=== PATIENT | female | born 1980 | race American Indian/Alaskan Native ===

== ENCOUNTER 2021-07-14 13:42 | Observation (INO) | payer MEDICARE ==
[2021-07-14] MEDS ORDERED: ONDANSETRON 4 MG/2 ML INJ IV ONE (13:55)
[2021-07-14] MEDS ORDERED: MORPHINE 4 MG/1 ML INJ IV ONE (13:55)
--- NOTE | 2021-07-14 13:58 | Emergency Department Report ---
HPI - General Chief Complaint: Abdominal Pain Time Seen by Provider: 07/14/21 13:52 - HPI HPI: This is a 40-year-old -French female presents to the emergency department via EMS from home with complaint of a 4-day history of abdominal pain and some recent nausea with vomiting. Patient has a history of hypertension and end-stage renal disease on hemodialysis on Thursday/Thursday/Thursday. She also has a history of hypertension and HIV. She cannot remember the name of her meeting/event planner currently, but gets dialysis at [facility]. The patient does make a small amount of urine, but denies any change in urine output. She denies any fever, vaginal bleeding or discharge, diarrhea, constipation, chest pain or shortness of breath. The abdominal pain is generalized, worse in the middle to upper quadrants, and currently 10 out of 10 in intensity. No known aggravating or alleviating factors. The pain radiates around her flank and back. No recent travel or sick contacts at home. She has not taken anything for symptoms prior to presentation today. ED Past Medical Hx - Past Medical History Previous Medical History?: Yes Hx Hypertension: Yes Hx Renal Disease: Yes Additional medical history: ESRD, HIV+ - Surgical History Past Surgical History?: No - Social History Smoking Status: Current Every Day Smoker Substance Use Type: Marijuana - Medications Home Medications: Home Medications Medication Instructions Recorded Confirmed Last Taken Type Amlodipine Besylate [Norvasc] 10 mg PO DAILY 07/14/21 07/14/21 Unknown History Calcium Acetate 667 mg PO QDAY 07/14/21 07/14/21 Unknown History Dolutegravir Sodium/Lamivudine 1 each PO DAILY 07/14/21 07/14/21 Unknown History [Dovato 50-300 mg Tablet] Isosorbide Dinitrate [Isordil] 20 mg PO BID 07/14/21 07/14/21 Unknown History Nortriptyline [Pamelor] 10 mg PO QHS 07/14/21 07/14/21 Unknown History carvediloL [Coreg] 25 mg PO BID 07/14/21 07/14/21 Unknown History sevelamer HCL [Sevelamer HCl] 800 mg PO QDAY 07/14/21 07/14/21 Unknown History ED Review of Systems ROS: Stated complaint: ABD PAIN Other details as noted in HPI Comment: All other systems reviewed and negative Constitutional: denies: chills, fever Eyes: denies: eye pain, vision change ENT: denies: ear pain, throat pain Respiratory: denies: cough, shortness of breath Cardiovascular: denies: chest pain, palpitations Gastrointestinal: abdominal pain, nausea, vomiting Genitourinary: denies: dysuria, discharge Musculoskeletal: back pain. denies: arthralgia Skin: denies: rash, lesions Neurological: denies: headache, weakness Physical Exam - Physical Exam Physical Exam: GENERAL: The patient is well-developed well-nourished. HENT: Normocephalic. Atraumatic. Patient has moist mucous membranes. EYES: Extraocular motions are intact. NECK: Supple. Trachea is midline. CHEST/LUNGS: Clear to auscultation. There is no respiratory distress noted. HEART/CARDIOVASCULAR: Regular. There is no tachycardia. There is no murmur. ABDOMEN: Abdomen is soft. Generalized abdominal tenderness to palpation. No guarding. Patient has normal bowel sounds. There is no abdominal distention. SKIN: Skin is warm and dry. NEURO: The patient is awake, alert, and oriented. The patient is cooperative. The patient has no focal neurologic deficits. Normal speech. MUSCULOSKELETAL: There is no tenderness or deformity. There is no limitation range of motion. ED Course - Consultations Consultation #1: 07/14/21 15:42 I spoke to the meeting/event planner on-call, Dr. Bhatt, regarding the patient's presentation and hyperkalemia. He agrees with the plan for a hyperkalemia cocktail and he will arrange for the patient to get dialysis. ED Medical Decision Making - Lab Data Result diagrams: 07/14/21 14:11 07/14/21 14:11 Lab Results 07/14/21 07/14/21 07/14/21 Range/Units 14:11 14:11 14:11 WBC 10.1 (4.5-11.0) K/mm3 RBC 3.71 (3.65-5.03) M/mm3 Hgb 10.5 (10.1-14.3) gm/dl Hct 32.8 (30.3-42.9) % MCV 89 (79-97) fl MCH 28 (28-32) pg MCHC 32 (30-34) % RDW 15.2 (13.2-15.2) % Plt Count 141 (140-440) K/mm3 Lymph % (Auto) 15.5 (13.4-35.0) % [place] % (Auto) 5.3 (0.0-7.3) % Eos % (Auto) 3.5 (0.0-4.3) % Baso % (Auto) 1.2 (0.0-1.8) % Lymph # (Auto) 1.6 (1.2-5.4) K/mm3 [place] # (Auto) 0.5 (0.0-0.8) K/mm3 Eos # (Auto) 0.4 (0.0-0.4) K/mm3 Baso # (Auto) 0.1 (0.0-0.1) K/mm3 Seg Neutrophils % 74.5 H (40.0-70.0) % Seg Neutrophils # 7.6 (1.8-7.7) K/mm3 Sodium 138 (137-145) mmol/L Potassium 6.6 H* (3.6-5.0) mmol/L Chloride 97.1 L (98-107) mmol/L Carbon Dioxide 22 (22-30) mmol/L Anion Gap 26 mmol/L BUN 51 H (7-17) mg/dL Creatinine 13.4 H (0.6-1.2) mg/dL Estimated GFR 3 ml/min BUN/Creatinine Ratio 4 % Glucose 72 (65-100) mg/dL Calcium 9.3 (8.4-10.2) mg/dL Total Bilirubin 0.30 (0.1-1.2) mg/dL Direct Bilirubin < 0.2 (0-0.2) mg/dL Indirect Bilirubin 0.1 mg/dL AST 11 (5-40) units/L ALT 5 L (7-56) units/L Alkaline Phosphatase 53 (35-129) units/L Total Protein 7.6 (6.3-8.2) g/dL Albumin 3.7 L (3.9-5) g/dL Albumin/Globulin Ratio 0.9 % Lipase 54 (13-60) units/L HCG, Qual Negative (Negative) Hepatitis A IgM Ab (NonReactive) Hep Bs Antigen (Negative) Hep B Core IgM Ab (NonReactive) Hepatitis C Antibody (NonReactive) 07/14/21 Range/Units 17:13 WBC (4.5-11.0) K/mm3 RBC (3.65-5.03) M/mm3 Hgb (10.1-14.3) gm/dl Hct (30.3-42.9) % MCV (79-97) fl MCH (28-32) pg MCHC (30-34) % RDW (13.2-15.2) % Plt Count (140-440) K/mm3 Lymph % (Auto) (13.4-35.0) % [place] % (Auto) (0.0-7.3) % Eos % (Auto) (0.0-4.3) % Baso % (Auto) (0.0-1.8) % Lymph # (Auto) (1.2-5.4) K/mm3 [place] # (Auto) (0.0-0.8) K/mm3 Eos # (Auto) (0.0-0.4) K/mm3 Baso # (Auto) (0.0-0.1) K/mm3 Seg Neutrophils % (40.0-70.0) % Seg Neutrophils # (1.8-7.7) K/mm3 Sodium (137-145) mmol/L Potassium (3.6-5.0) mmol/L Chloride (98-107) mmol/L Carbon Dioxide (22-30) mmol/L Anion Gap mmol/L BUN (7-17) mg/dL Creatinine (0.6-1.2) mg/dL Estimated GFR ml/min BUN/Creatinine Ratio % Glucose (65-100) mg/dL Calcium (8.4-10.2) mg/dL Total Bilirubin (0.1-1.2) mg/dL Direct Bilirubin (0-0.2) mg/dL Indirect Bilirubin mg/dL AST (5-40) units/L ALT (7-56) units/L Alkaline Phosphatase (35-129) units/L Total Protein (6.3-8.2) g/dL Albumin (3.9-5) g/dL Albumin/Globulin Ratio % Lipase (13-60) units/L HCG, Qual (Negative) Hepatitis A IgM Ab Non-reactive (NonReactive) Hep Bs Antigen Nonreactive (Negative) Hep B Core IgM Ab Non-reactive (NonReactive) Hepatitis C Antibody Non-reactive (NonReactive) - Radiology Data Radiology results: report reviewed CT ABDOMEN AND PELVIS WITHOUT CONTRAST INDICATION: Abd pain x 4 days, radiates to flanks and back. TECHNIQUE: Axial CT images were obtained through the abdomen and pelvis without IV contrast. All CT scans at this location are performed using CT dose reduction for ALARA by means of automated exposure control. COMPARISON: None available. FINDINGS: Limited by moderate amount of respiratory motion artifact. LOWER CHEST: No significant abnormality. Linear scar/atelectasis left lower lobe. LIVER: No significant abnormality. GALLBLADDER: No significant abnormality. BILE DUCTS: No significant abnormality. PANCREAS: No significant abnormality. SPLEEN: No significant abnormality. AD RENALS: No significant abnormality. RIGHT KIDNEY and URETER: Nonobstructing 2 mm right proximal ureteral stone L3-4 level without hydronephrosis. No intrarenal stone LEFT KIDNEY and URETER: No significant abnormality. STOMACH and SMALL BOWEL: No significant abnormality. COLON: No significant abnormality. APPENDIX: No significant abnormality. PERITONEUM: No free fluid. No free air. No fluid collection. LYMPH NODES: No significant adenopathy. AORTA and ARTERIES: No significant abnormality. IVC and VEINS: No significant abnormality. URINARY BLADDER: No significant abnormality. REPRODUCTIVE ORGANS: No significant abnormality. ADDITIONAL FINDINGS: None. SKELETAL SYSTEM: No significant abnormality. IMPRESSION: 1. Nonobstructing 2 mm right proximal ureteral stone. No hydronephrosis. - Medical Decision Making This patient presents to the emergency department with a 4-day history of abdominal pain with radiation towards the flank and back. On examination there is reproducible tenderness to palpation. The abdomen is soft and nondistended. Labs are remarkable for renal insufficiency consistent with her end-stage renal disease on hemodialysis, and hyperkalemia with a potassium of 6.6. I spoke to the meeting/event planner on-call who will provide orders for dialysis and agreed with the hyperkalemia cocktail. Patient will be admitted to the hospital for further evaluation and treatment and was accepted for admission by Dr. Adhikari. Critical Care Time: No Critical care attestation.: If time is entered above; I have spent that time in minutes in the direct care of this critically ill patient, excluding procedure time. ED Disposition Clinical Impression: ESRD needing dialysis, Hyperkalemia Abdominal pain Qualifiers: Abdominal location: generalized Qualified Code(s): R10.84 - Generalized abdominal pain Hypertension Qualifiers: Hypertension type: primary hypertension Qualified Code(s): I10 - Essential (p rimary) hypertension Disposition: ADMITTED INPATIENT Is pt being admited?: Yes Condition: Fair Instructions: Abdominal Pain (ED), Hypertension (ED) Time of Disposition: 19:09
[2021-07-14 14:23] LABS: Basophils # (Auto) 0.1 K/mm3 (0.0-0.1); Basophils % (Auto) 1.2 % (0.0-1.8); Eosinophils # (Auto) 0.4 K/mm3 (0.0-0.4); Eosinophils % (Auto) 3.5 % (0.0-4.3); Hematocrit 32.8 % (30.3-42.9); Hemoglobin 10.5 gm/dl (10.1-14.3); Lymphocytes # (Auto) 1.6 K/mm3 (1.2-5.4); Lymphocytes % (Auto) 15.5 % (13.4-35.0); Mean Corpuscular HGB Conc 32 % (30-34); Mean Corpuscular Volume 89 fl (79-97); Monocytes # (Auto) 0.5 K/mm3 (0.0-0.8); Monocytes % (Auto) 5.3 % (0.0-7.3); Platelet Count 141 K/mm3 (140-440); Red Blood Count 3.71 M/mm3 (3.65-5.03); Red Cell Distribution Width 15.2 % (13.2-15.2)
[2021-07-14 14:53] LABS: Alanine Aminotransferase 5 units/L (7-56); Albumin 3.7 g/dL (3.9-5); Blood Urea Nitrogen 51 mg/dL (7-17); Calcium 9.3 mg/dL (8.4-10.2); Hemolysis Index 8
[2021-07-14 14:56] LABS: BUN/Creatinine Ratio 4; Bilirubin,Direct < 0.2 mg/dL (0-0.2)
[2021-07-14] MEDS ORDERED: SODIUM POLYSTYRENE 15 GM/60 ML ORAL LIQD PO ONE (15:40)
[2021-07-14] MEDS ORDERED: CALCIUM GLUCONATE 1,000 MG in SODIUM CHLORIDE 0.9% 100 ML IV ONE (15:40)
[2021-07-14] MEDS ORDERED: ALBUTEROL 2.5 MG/3 ML NEBU IH ONE (15:40)
[2021-07-14] MEDS ORDERED: SODIUM CHLORIDE 0.9% 100 ML IV PRN ×2 (15:47→19:05)
--- NOTE | 2021-07-14 16:09 | Cat Scan Report ---
CT ABDOMEN AND PELVIS WITHOUT CONTRAST INDICATION: Abd pain x 4 days, radiates to flanks and back. TECHNIQUE: Axial CT images were obtained through the abdomen and pelvis without IV contrast. All CT scans at [facility] location are performed using CT dose reduction for ALARA by means of automated exposure control. COMPARISON: None available. FINDINGS: Limited by moderate amount of respiratory motion artifact. LOWER CHEST: No significant abnormality. Linear scar/atelectasis left lower lobe. LIVER: No significant abnormality. GALLBLADDER: No significant abnormality. BILE DUCTS: No significant abnormality. PANCREAS: No significant abnormality. SPLEEN: No significant abnormality. ADRENALS: No significant abnormality. RIGHT KIDNEY and URETER: Nonobstructing 2 mm right proximal ureteral stone L3-4 level without hydrone phrosis. No intrarenal stone LEFT KIDNEY and URETER: No significant abnormality. STOMACH and SMALL BOWEL: No significant abnormality. COLON: No significant abnormality. APPENDIX: No significant abnormality. PERITONEUM: No free fluid. No free air. No fluid collection. LYMPH NODES: No significant adenopathy. AORTA and ARTERIES: No significant abnormality. IVC and VEINS: No significant abnormality. URINARY BLADDER: No significant abnormality. REPRODUCTIVE ORGANS: No significant abnormality. ADDITIONAL FINDINGS: None. SKELETAL SYSTEM: No significant abnormality. IMPRESSION: 1. Nonobstructing 2 mm right proximal ureteral stone. No hydronephrosis. Signer Name: Rosalino Cristina MD Signed: 07/14/2021 4:05 PM Workstation Name: [id number]
[2021-07-14] MEDS ORDERED: ALBUTEROL 2.5 MG/3 ML NEBU IH PRN (16:11)
[2021-07-14] MEDS ORDERED: HYDROmorphone 1 MG/1 ML INJ IV PRN (16:11)
[2021-07-14] MEDS ORDERED: ACETAMINOPHEN 325 MG TAB PO PRN (16:11)
--- NOTE | 2021-07-14 16:13 | History and Physical Report ---
History of Present Illness Chief complaint: I have not been feeling well History of present illness: 40 YO Female with ESRD on HD(M,W,F), HTN, HIV, Nicotine Dependence presents to ED for evaluation. Patient reports "I have not been feeling well". Patient states that she has experienced nausea, multiple episodes of vomiting, generalized weakness, abdominal pain, and shortness of breath over the past 4 days with persistent symptoms over the same timeframe. EMS was notified and upon arrival the patient was found to be in distress and subsequently transported to [facility] for further care and evaluation of the aforementioned symptoms. The patient was seen and evaluated in the emergency department. All lab and imaging studies reviewed. Patient found to have end-stage renal disease complicated by fluid overload in need of urgent dialysis, accelerated hypertension, hyperkalemia. CT scan of the abdomen and pelvis revealed a 2 mm proximal right ureteral stone without obstruction. Patient placed in observation status and admitted to medical floor. Nephrology team consulted in ED. Patient denies fever, chills, chest pain, palpitation, productive cough, skin rash, recent contact, known exposure to COVID-19. No prior admission for review. No medication listed at time of admission for reconciliation. Past History Past Medical History: ESRD, HIV/AIDS, hypertension, other (See HPI) Past Surgical History: Other (Dialysis access) Social history: smoking Family history: hypertension Medications and Allergies Allergies Allergy/AdvReac Type Severity Reaction Status Date / Time No Known Allergies Allergy Verified 07/14/21 17:01 Home Medications Medication Instructions Recorded Confirmed Last Taken Type Amlodipine Besylate [Norvasc] 10 mg PO DAILY 07/14/21 07/14/21 Unknown History Calcium Acetate 667 mg PO QDAY 07/14/21 07/14/21 Unknown History Dolutegravir Sodium/Lamivudine 1 each PO DAILY 07/14/21 07/14/21 Unknown History [Dovato 50-300 mg Tablet] Isosorbide Dinitrate [Isordil] 20 mg PO BID 07/14/21 07/14/21 Unknown History Nortriptyline [Pamelor] 10 mg PO QHS 07/14/21 07/14/21 Unknown History carvediloL [Coreg] 25 mg PO BID 07/14/21 07/14/21 Unknown History sevelamer HCL [Sevelamer HCl] 800 mg PO QDAY 07/14/21 07/14/21 Unknown History Active Meds: Active Medications Sodium Chloride (Nacl 0.9%) 100 mls @ 999 mls/hr IV PALMER PRN PRN Reason: Hypotension Review of Systems Constitutional: no weight loss, no weight gain, no fever, no chills Ears, nose, mouth and throat: no ear pain, no ear discharge, no nose pain, no nasal congestion Breasts: no change in shape, no swelling Cardiovascular: no chest pain, no orthopnea, no rapid/irregular heart beat, no syncope Respiratory: no hemoptysis, no shortness of breath Gastrointestinal: abdominal pain, nausea, vomiting Genitourinary Female: no pelvic pain, no flank pain, no dysuria, no urinary frequency, no urgency Rectal: no pain, no incontinence, no bleeding Musculoskeletal: no neck stiffness, no neck pain Integumentary: no rash, no pruritis, no redness, no wounds, no jaundice Neurological: no head injury, no transient paralysis, no parathesias, no numbness, no tingling, no tremors Psychiatric: no anxiety, no sleep disturbances, no hypersomnia, no change in libido, no suicidal ideation, no disorientation Endocrine: no cold intolerance, no polyphagia, no excessive thirst, no polydipsia, no nocturia, no excessive sweating Hematologic/Lymphatic: no easy bruising, no easy bleeding Allergic/Immunologic: no urticaria, no allergic rhinitis, no wheezing Exam - Constitutional Vitals: Temp Pulse Resp BP Pulse Ox 84 15 161/105 98 07/14/21 15:01 07/14/21 15:01 07/14/21 15:01 07/14/21 15:15 General appearance: Present: mild distress - EENT Eyes: Present: PERRL ENT: hearing intact, clear oral mucosa - Neck Neck: Present: supple, normal ROM - Respiratory Respiratory effort: normal Respiratory: bilateral: CTA - Cardiovascular Heart Sounds: Present: S1 & S2. Absent: rub, click - Extremities Extremities: pulses symmetrical, No edema Peripheral Pulses: within normal limits - Abdominal General gastrointestinal: Present: soft, non-tender, non-distended, normal bowel sounds Female genitourinary: Present: normal - Integumentary Integumentary: Present: clear, warm, dry - Musculoskeletal Musculoskeletal: gait normal, strength equal bilaterally - Psychiatric Psychiatric: appropriate mood/affect, intact judgment & insight - Neurologic Neurologic: CNII-XII intact, moves all extremities Results - Labs CBC & Chem 7: 07/14/21 14:11 07/14/21 14:11 Labs: Abnormal lab results 07/14/21 07/14/21 Range/Units 14:11 14:11 Seg Neutrophils % 74.5 H (40.0-70.0) % Potassium 6.6 H* (3.6-5.0) mmol/L Chloride 97.1 L (98-107) mmol/L BUN 51 H (7-17) mg/dL Creatinine 13.4 H (0.6-1.2) mg/dL ALT 5 L (7-56) units/L Albumin 3.7 L (3.9-5) g/dL Assessment and Plan - Patient Problems (1) End stage renal disease Current Visit: Yes Status: Acute Plan to address problem: Nephrology team consulted in ED, dialysis as per renal team, strict I's/O, monitor fluid balance, avoid nephrotoxic agents. (2) Fluid overload Current Visit: Yes Status: Acute Qualifiers: Hypervolemia type: unspecified Qualified Code(s): E87.70 - Fluid overload, unspecified Plan to address problem: Dialysis as per renal team, strict I's/O, monitor urine output every shift, monitor fluid balance, (3) HIV (human immunodeficiency virus infection) Current Visit: Yes Status: Acute Plan to address problem: Outpatient infectious disease follow-up, continue current therapy. (4) Hypertension Current Visit: Yes Status: Acute Qualifiers: Hypertension type: primary hypertension Qualified Code(s): I10 - Essential (primary) hypertension Plan to address problem: Monitor blood pressure every shift, continue medical management. (5) Nicotine dependence Current Visit: Yes Status: Acute Qualifiers: Nicotine product type: cigarettes Substance use status: in withdrawal Qualified Code(s): F17.213 - Nicotine dependence, cigarettes, with withdrawal Plan to address problem: Smoking cessation counseling, supportive care, behavior change counseling +15 minutes. (6) DVT prophylaxis Current Visit: Yes Status: Acute Plan to address problem: SCD to bilateral lower extremities while in bed, patient is ambulatory
[2021-07-14 17:51] LABS: Hepatitis C Virus Antibody Non-Reactive (NonReactive)
[2021-07-14 17:57] LABS: Hepatitis B Surface Antigen Nonreactive (Negative)
[2021-07-14] MEDS: cloNIDine 0.1 MG TAB PO PRN (19:15)
[2021-07-14] MEDS: ONDANSETRON 4 MG/2 ML INJ IV PRN (21:40)
[2021-07-15] MEDS: cloNIDine 0.1 MG TAB PO PRN ×2 (01:16→11:15)
[2021-07-15] MEDS: oxyCODONE /ACETAMINOPHEN 5-325MG TAB PO PRN ×2 (01:17→10:41)
[2021-07-15] MEDS ORDERED: hydrALAZINE 20 MG/1 ML INJ IV PRN (02:37)
--- NOTE | 2021-07-15 08:07 | Consultation ---
History of Present Illness - Reason for Consult Consult date: 07/15/21 end stage renal disease Requesting physician: JOANNA MARTINEZ - History of Present Illness 40-year-old lady who is not known to me with a history of hypertension, end- stage renal disease, HIV, heart small bowel and one episode of kidney stones several years ago. Patient presented to the hospital on account of 4 days history of abdominal pain nausea vomiting. She admits to generalized weakness. She denies any urinary symptoms. No fever or chills. Pain is generalized but worse in right mid to upper quadrant and was severe rated as a 10/10. On presentation, blood pressure was quite elevated at 203/133 mmHg. potassium was also elevated at 6.6 mmol/L. Patient states he had dialysis on Thursday and completed a treatment with no complications. She dialyzes at [facility] for the last 1 year. Of unfortunately, she is still dialyzing with a permacath. She states her veins are too small and she was unable to get a fistula. I encouraged her to get a graft. CT scan done showed a 2 mm proximal ureteral stone. No other findings in the abdomen that would explain her pain. She still makes urine but denies any hematuria frequency dysuria. I was called about the patient yesterday and I ordered stat dialysis which patient did receive. Past History Past Medical History: ESRD, HIV/AIDS, hypertension, other (Kidney stones, heart normal) Past Surgical History: Other (Permacath placement, bilateral tubal ligation) Social history: lives with family (Lives with her children), smoking (1 to 2 cigarettes a day. 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 denies: alcohol abuse, prescription drug abuse Family history: hypertension (Both parents have hypertension), other (Mother has HIV) Medications and Allergies Allergies Allergy/AdvReac Type Severity Reaction Status Date / Time No Known Allergies Allergy Verified 07/14/21 17:01 Home Medications Medication Instructions Recorded Confirmed Last Taken Type Amlodipine Besylate [Norvasc] 10 mg PO DAILY 07/14/21 07/14/21 Unknown History Calcium Acetate 667 mg PO QDAY 07/14/21 07/14/21 Unknown History Dolutegravir Sodium/Lamivudine 1 each PO DAILY 07/14/21 07/14/21 Unknown History [Dovato 50-300 mg Tablet] Isosorbide Dinitrate [Isordil] 20 mg PO BID 07/14/21 07/14/21 Unknown History Nortriptyline [Pamelor] 10 mg PO QHS 07/14/21 07/14/21 Unknown History carvediloL [Coreg] 25 mg PO BID 07/14/21 07/14/21 Unknown History sevelamer HCL [Sevelamer HCl] 800 mg PO QDAY 07/14/21 07/14/21 Unknown History Active Meds: Active Medications Acetaminophen (Acetaminophen 325 Mg Tab) 650 mg PO Q4H PRN PRN Reason: Pain MILD(1-3)/Fever >100.5/SHELL Albuterol (Albuterol 2.5 Mg/3 Ml Nebu) 2.5 mg IH Q4H PRN PRN Reason: Shortness Of Breath Clonidine HCl (Clonidine 0.1 Mg Tab) 0.1 mg PO PALMER PRN PRN Reason: Hypertension Last Admin: 07/15/21 01:16 Dose: 0.1 mg Documented by: Hydralazine HCl (Hydralazine 20 Mg/1 Ml Inj) 10 mg IV Q4HR PRN PRN Reason: Blood Pressure Last Admin: 07/15/21 02:47 Dose: 10 mg Documented by: Hydromorphone HCl (Hydromorphone 1 Mg/1 Ml Inj) 0.5 mg IV Q23H PRN PRN Reason: Pain , Severe (7-10) Last Admin: 07/14/21 21:40 Dose: 0.5 mg Documented by: Sodium Chloride (Nacl 0.9%) 100 mls @ 999 mls/hr IV PALMER PRN PRN Reason: Hypotension Ondansetron HCl (Ondansetron 4 Mg/2 Ml Inj) 4 mg IV Q8H PRN PRN Reason: Nausea And Vomiting Last Admin: 07/14/21 21:40 Dose: 4 mg Documented by: Oxycodone/Acetaminophen (Oxycodone /Acetaminophen 5-325mg Tab) 1 tab PO Q16H PRN PRN Reason: Pain, Moderate (4-6) Last Admin: 07/15/21 01:17 Dose: 1 tab Documented by: Sodium Chloride (Sodium Chloride 0.9% 10 Ml Flush Syringe) 10 ml IV BID KIRSTY Last Admin: 07/14/21 21:41 Dose: 10 ml Documented by: Sodium Chloride (Sodium Chloride 0.9% 10 Ml Flush Syringe) 10 ml IV PRN PRN PRN Reason: LINE FLUSH Review of Systems All systems: negative (Constitutional: no fever or chills. No anorexia or weight loss. HEENT: No sore throat or sinus drainage no hearing or vision impairment . Cardiovascular: Admits to chest pain yesterday. Has occasional SOB, palpitat ions, lower extremity swelling or dizziness. Respiratory: No cough, sputum,) Gastrointestinal: abdominal pain, nausea, vomiting, no diarrhea, no constipation, no hematemesis, no coffee ground emesis, no jaundice, no early satiety Genitourinary Female: no dysuria, no urinary frequency, no urgency, no hematuria Rectal: no bleeding, no discharge Musculoskeletal: other (No joint pains or stiffness), no low back pain, no muscle cramps, no myalgias Integumentary: pruritis, no rash, no hirsutism Neurological: seizures (Has had 3 seizures the most recent was about a month ago), headaches (Admits to dizziness), no numbness, no tingling Psychiatric: no anxiety, no depression Endocrine: no cold intolerance, no heat intolerance Hematologic/Lymphatic: easy bruising Exam - Vital Signs Vital signs: Vital Signs Pulse Resp Pulse Ox 70 14 100 07/14/21 13:59 07/14/21 13:59 07/14/21 13:59 - Physical Exam Narrative exam: Young -Swedish female lying in bed in no acute distress HEENT: NCAT, pink oral mucous membrane Neck: Supple, no venous distention CVS: S1S2 RRR with no murmur, rub or gallop Chest: Clear to auscultation Abdomen: Protuberant, soft, nontender, no organomegaly, bowel sounds are present Extremities: No edema Genitourinary deferred Skin warm and dry with no rash Neuro: Awake, alert no focal deficits Results - Lab Results 07/14/21 14:11 07/14/21 14:11 Most recent lab results Calcium 9.3 mg/dL (8.4-10.2) 07/14/21 14:11 Assessment and Plan - Patient Problems (1) Hyperkalemia Current Visit: Yes Status: Acute Plan to address problem: Secondary to noncompliance with dietary potassium restriction. Urgent dialysis yesterday on a low potassium bath. Follow-up potassium this morning (2) Accelerated hypertension Current Visit: Yes Status: Acute Plan to address problem: Accelerated hypertension probably volume related. Patient received urgent dialysis yesterday and has been started on her antihypertensive medications. Blood pressure improved this morning (3) Right ureteral stone Current Visit: Yes Status: Acute Plan to address problem: Right ureteral stone probably the cause of her pain. We will start patient on tamsulosin. Unfortunately cannot encourage liberal fluid intake due to end- stage renal disease. Consider urology evaluation (4) Abdominal pain Current Visit: Yes Status: Acute Plan to address problem: Abdominal pain, nausea and vomiting probably secondary to kidney stone. (5) Hypertensive chronic kidney disease with stage 5 chronic kidney disease or end stage renal disease Current Visit: Yes Status: Acute Plan to address problem: Blood pressure elevated improved on presentation now improved. (6) End stage renal disease Current Visit: Yes Status: Acute Plan to address problem: Received urgent dialysis yesterday. We will follow-up potassium this morning. If normal, will wait till tomorrow before the next dialysis treatment. Discussed in detail with the patient about the need to get an AV access as soon as possible. Discussed possible complications of prolonged tunneled dialysis catheter including central venous stenosis and also potentially life-threatening infections. Patient demonstrated understanding and stated that she already knows "all this" (7) Fluid overload Current Visit: Yes Status: Acute Qualifiers: Hypervolemia type: unspecified Qualified Code(s): E87.70 - Fluid overload, unspecified Plan to address problem: Probably secondary to noncompliance with dietary sodium and fluid restriction. Improved with dialysis. (8) HIV (human immunodeficiency virus infection) Current Visit: Yes Status: Acute Plan to address problem: States she has been out of antiretrovirals for 2 weeks. Needs to follow-up with infectious disease specialist as an outpatient
--- NOTE | 2021-07-15 08:32 | Discharge Summary ---
Providers - Providers Date of Admission: 07/15/21 01:22 Date of discharge: 07/15/21 Attending physician: RELL RUIZ MD 07/14/21 15:41 Consult to Physician [CONS] Routine Comment: Consulting Provider: STEPHEN HOOD Physician Instructions: Reason For Exam: ESRD needing dialysis, hyperkalemia Primary care physician: SKEIN DRIER Hospitalization Reason for admission: generalized weakness Condition: Fair Hospital course: History of present illness: 40 YO Female with ESRD on HD(M,W,F), HTN, HIV, Nicotine Dependence presents to ED for evaluation. Patient reports "I have not been feeling well". Patient states that she has experienced nausea, multiple episodes of vomiting, gene ralized weakness, abdominal pain, and shortness of breath over the past 4 days with persistent symptoms over the same timeframe. EMS was notified and upon arrival the patient was found to be in distress and subsequently transported to [facility] for further care and evaluation of the aforementioned symptoms. The patient was seen and evaluated in the emergency department. All lab and imaging studies reviewed. Patient found to have end-stage renal disease complicated by fluid overload in need of urgent dialysis, accelerated hypertension, hyperkalemia. CT scan of the abdomen and pelvis revealed a 2 mm proximal right ureteral stone without obstruction. Patient placed in observation status and admitted to medical floor. Nephrology team consulted in ED. Patient denies fever, chills, chest pain, palpitation, productive cough, skin rash, recent contact, known exposure to COVID-19. No prior admission for review. No medication listed at time of admission for reconciliation. History of present illness: Patient was admitted for fluid overload, hypertensive emergency, and electrolyte abnormality (hyperkalemia). Blood pressue on admission was 200's systolic. Controlled with hydralazine, clonidine. Added amlodipine to regimen. Fluid overload and electrolyte abnormality will be corrected with hemodialysis. Nephrology is consulted. Patient will likely be discharged after dialysis if vitally stable and improvement of symptomology. She will be advised to follow- up with her primary care physician in 3 to 5 days and her paver layer ASPEN. She is also advised to follow-up outpatient with her infectious disease doctor for continued follow-up for her HIV. (1) End stage renal disease Current Visit: Yes Status: Acute Plan to address problem: Nephrology team consulted in ED, dialysis as per renal team, strict I's/O, monitor fluid balance, avoid nephrotoxic agents. (2) Fluid overload Current Visit: Yes Status: Acute Qualifiers: Hypervolemia type: unspecified Qualified Code(s): E87.70 - Fluid overload, unspecified Plan to address problem: Dialysis as per renal team, strict I's/O, monitor urine output every shift, monitor fluid balance, (3) HIV (human immunodeficiency virus infection) Current Visit: Yes Status: Acute Plan to address problem: Outpatient infectious disease follow-up, continue current therapy. (4) Hypertensive emergency Current Visit: Yes Status: Acute Qualifiers: Hypertension type: primary hypertension Qualified Code(s): I10 - Essential (primary) hypertension Plan to address problem: Monitor blood pressure every shift, continue medical management. Hydralazine prn clonidine q dialysis Added amlodipine 5 mg po daily (5) Nicotine dependence Current Visit: Yes Status: Acute Qualifiers: Nicotine product type: cigarettes Substance use status: in withdrawal Qualified Code(s): F17.213 - Nicotine dependence, cigarettes, with withdrawal Plan to address problem: Smoking cessation counseling, supportive care, behavior change counseling +15 minutes. (6) DVT prophylaxis Current Visit: Yes Status: Acute Plan to address problem: SCD to bilateral lower extremities while in bed, patient is ambulatory Disposition: 01 HOME / SELF CARE / HOMELESS Final Discharge Diagnosis (Prints w/discharge instructions): Fluid Overload Requiring Dialysis Time spent for discharge: 25 - Discharge Diagnoses (1) Hypertensive emergency Status: Acute (2) Abdominal pain Status: Acute (3) End stage renal disease Status: Acute (4) Fluid overload Status: Acute Qualifiers: Hypervolemia type: unspecified Qualified Code(s): E87.70 - Fluid overload, unspecified (5) HIV (human immunodeficiency virus infection) Status: Acute (6) Hyperkalemia Status: Acute (7) Right ureteral stone Status: Acute Core Measure Documentation - Palliative Care Palliative Care/ Comfort Measures: Not Applicable - Core Measures Any of the following diagnoses?: none Exam - Physical Exam Narrative exam: General appearance: Present: NAD - EENT Eyes: Present: PERRL ENT: hearing intact, clear oral mucosa - Neck Neck: Present: supple, normal ROM - Respiratory Respiratory effort: normal Respiratory: bilateral: CTA - Cardiovascular Heart Sounds: Present: S1 & S2. Absent: rub, click - Extremities Extremities: pulses symmetrical, No edema Peripheral Pulses: within normal limits - Abdominal General gastrointestinal: Present: soft, non-tender, non-distended, normal bowel sounds Female genitourinary: Present: normal - Integumentary Integumentary: Present: clear, warm, dry - Musculoskeletal Musculoskeletal: gait normal, strength equal bilaterally - Psychiatric Psychiatric: appropriate mood/affect, intact judgment & insight - Neurologic Neurologic: CNII-XII intact, moves all extremities - Constitutional Vitals: Temp Pulse Resp BP Pulse Ox 98.5 F 77 16 155/99 98 07/15/21 04:14 07/15/21 04:14 07/15/21 04:14 07/15/21 04:14 07/15/21 04:14 Plan Activity: advance as tolerated Weight Bearing Status: Weight Bear as Tolerated Diet: renal Special Instructions: restrict fluid intake to (1.5 L daily) Follow up with: PRIMARY CAREMD [Primary Care Provider] - 7 Days
[2021-07-15] MEDS ORDERED: SODIUM CHLORIDE 0.9% 100 ML IV PRN (09:01)
[2021-07-15 09:06] LABS: Calcium 8.6 mg/dL (8.4-10.2)
[2021-07-15] MEDS ORDERED: ALUM-MAG HYDROXIDE-SIMETHICONE 200-200-20MG/5ML ORAL LIQD 30 ML PO PRN (09:39)
[2021-07-15] MEDS ORDERED: TAMSULOSIN 0.4 MG CAP PO SCH (10:00)
[2021-07-15] MEDS ORDERED: PANTOPRAZOLE 40 MG TAB PO SCH (10:00)
[2021-07-15] MEDS ORDERED: amLODIPine 5 MG TAB PO SCH (10:00)
[2021-07-15] MEDS: ONDANSETRON 4 MG/2 ML INJ IV PRN (10:41)
[2021-07-15 11:58] VITALS: BP 157/111
== END 2021-07-15 14:40 | disposition home or self-care (01) ==
LOC: ED 13:42 → 3A 07-15 01:22
PROVIDERS: ADMIT Internal Medicine; ATTEND Internal Medicine
DX: E87.70 Fluid overload, unspecified (principal); I16.1 Hypertensive emergency; I12.0 Hypertensive chronic kidney disease with stage 5 chronic kidney disease or end stage renal disease; N18.6 End stage renal disease; E87.5 Hyperkalemia; N20.1 Calculus of ureter; F17.213 Nicotine dependence, cigarettes, with withdrawal; R10.9 Unspecified abdominal pain; Z21 Asymptomatic human immunodeficiency virus [HIV] infection status; Z99.2 Dependence on renal dialysis
CPT/HCPCS: 36415; 74176; 80048; 80074; 80076; 83690; 84703; 85025; 94644; 96365; 96366; 96375; 96376; 99285; G0257; G0378; J0360; J0610; J1170; J2270; J2405